=== PATIENT | female | born 1990 | race Two or more races ===

== ENCOUNTER 2019-08-05 03:49 | Emergency (ER) | payer MEDICAID, OTHER ==
[~2019-08-05] VITALS: Ht 167.6 cm; Wt 146.1 kg
[2019-08-05 09:10] VITALS: BP 133/100
== END 2019-08-05 09:38 | disposition home or self-care (01) ==
LOC: ER 03:49
DX: J06.9 Acute upper respiratory infection, unspecified (principal); F41.9 Anxiety disorder, unspecified